=== PATIENT | female | born 1990 | race American Indian/Alaskan Native ===

== ENCOUNTER 2017-06-23 05:34 | Inpatient (IN) | payer MEDICAID ==
[2017-06-23] MEDS ORDERED: PITOCin/NS 20 UNIT/1000ML DRIP 20,000 MILLIUNITS/1,000 ML BAG IV ONE (06:13)
[2017-06-23] MEDS ORDERED: BRETHINE IVP PRN (06:33)
[2017-06-23] MEDS ORDERED: LANSINOH TP PRN (06:33)
[2017-06-23] MEDS ORDERED: BENADRYL PO PRN (06:33)
[2017-06-23] MEDS ORDERED: DULCOLAX PR PRN (06:33)
[2017-06-23] MEDS ORDERED: TORADOL IV PRN (06:33)
[2017-06-23] MEDS ORDERED: PERCOCET 5/325 PO PRN (06:33)
[2017-06-23] MEDS ORDERED: PHENERGAN PR PRN (06:33)
[2017-06-23] MEDS ORDERED: TUCKS PAD TP PRN (06:33)
[2017-06-23] MEDS ORDERED: BRETHINE SUB-Q PRN (06:33)
[2017-06-23] MEDS ORDERED: ZOFRAN IV PRN (06:33)
[2017-06-23] MEDS ORDERED: PHENERGAN PO PRN (06:33)
[2017-06-23] MEDS ORDERED: TYLENOL PO PRN (06:33)
[2017-06-23] MEDS ORDERED: MINERAL OIL PO PRN (06:33)
[2017-06-23] MEDS ORDERED: MILK OF MAGNESIA PO PRN (06:33)
[2017-06-23] MEDS ORDERED: XYLOCAINE 2% INFILTRATI ONE (06:33)
[2017-06-23] MEDS ORDERED: ePHEDrine SULFATE IV PRN (06:33)
--- NOTE | 2017-06-23 06:42 | History and Physical Report ---
History of Present Illness Date of examination: 06/23/17 Date of admission: 06/23/17 05:56 Chief complaint: contractions History of present illness: This is a 27 yo at 39 weeks came here in labor presented as 9cm. She has no care. Past History Past Medical History: no pertinent history Past Surgical History: no surgical history Social history: single. denies: smoking, alcohol abuse, prescription drug abuse - Obstetrical History Expected Date of Delivery: 06/27/17 Actual Gestation: 39 Week(s) 3 Day(s) : 4 Para: 3 Hx # Term Pregnancies: 1 Number of Pregnancies: 2 Spontaneous Abortions: 0 Induced : 0 Review of Systems All systems: negative Genitourinary: contractions - Vital Signs Vital signs: Vital Signs Pulse Pulse Ox 78 100 06/23/17 05:54 06/23/17 05:54 Temp Pulse Resp BP Pulse Ox 156 H 83 L 06/23/17 05:56 06/23/17 05:56 - Physical Exam Breasts: Positive: normal Cardiovascular: Regular rate, Normal S1 Lungs: Positive: Clear to auscultation, Normal air movement Abdomen: Positive: normal appearance, soft, normal bowel sounds. Negative: distention, tenderness, guarding Genitourinary (Female): Positive: normal external genitalia, normal perenium Uterus: Positive: normal size Anus/Rectum: Positive: normal perianal skin Extremities: Positive: normal Deep Tendon Reflex Grade: Normal +2 - Obstetrical FHR: category 1 Uterine Contraction Monitor Mode: Palpation Cervical Dilatation: 9 Cervical Effacement Percentage: 100 station: -1 Uterine Contraction Pattern: Regular Uterine Tone Measurement Phase: Contraction Uterine Contraction Intensity: Strong/Firm Results All other labs normal. Assessment and Plan A/P IUP 39 weeks No care GBS unknown expect vaginal delivery
--- NOTE | 2017-06-23 06:48 | Procedure Note ---
OB Delivery Note - Delivery Date of Delivery: 06/23/17 Surgeon: GM LOMAS Estimated blood loss: 200cc - Vaginal Delivery presentation: vertex Delivery position: OA Intrapartum events: no care, meconium Delivery induction: none Delivery augmentation: rupture of membranes Delivery monitor: external FHT, external uterine Route of delivery: Delivery placenta: spontaneous Delivery cord: 3 umbilical vessels Episiotomy: none Delivery laceration: none Delivery comments: Patient was noted to be c/c/0 and arom with meconium light. Peds called for brittnee. She commenced to pushing a viable female infant in OA presentation at 0625 with shoulders easily delivered and placed on mom chest. Nasopharynx and oropharynx suctions while peds assessing baby. the cord was clamped and cut. The placenta delivered intact with 3 vessel cord. Weight of female 6 pounds and 14 oz. EBL 200cc. no lacs. patient tolerated procedure well. - A at 1 minute: 8 at 5 minutes: 9 Gender: Female
[2017-06-23] MEDS ORDERED: PITOCin/NS 30 UNIT/500ML 30 UNITS/500 ML BAG IV SCH (07:00)
[2017-06-23] MEDS ORDERED: NORMOSOL-R PH 7.4 1,000 ML IV SCH (07:00)
[2017-06-23] MEDS ORDERED: PITOCin/NS 20 UNIT/1000ML DRIP 20 UNITS/1,000 ML BAG IV SCH ×2 (07:00)
[2017-06-23] MEDS ORDERED: SODIUM CHLORIDE FLUSH SYRINGE 10 ML IV NR (07:00)
[2017-06-23 07:29] LABS: Hematocrit 38.9 % (30.3-42.9); Hemoglobin 13.1 gm/dl (10.1-14.3); Mean Corpuscular HGB Conc 34 % (30-34); Mean Corpuscular Hemoglobin 31 pg (28-32); Mean Corpuscular Volume 92 fl (79-97); Platelet Count 230 K/mm3 (140-440); Red Blood Count 4.24 M/mm3 (3.65-5.03); Red Cell Distribution Width 13.7 % (13.2-15.2)
[2017-06-23] MEDS: NORCO 5/325 PO PRN ×2 (07:33→23:16)
[2017-06-23] MEDS: MOTRIN PO SCH ×3 (07:34→18:52)
[2017-06-23 07:58] LABS: Rubella IgG Antibody Immune (Immune)
[2017-06-23] MEDS ORDERED: PRENATAL VITAMIN PO SCH (10:00)
[2017-06-23 12:05] LABS: Hepatitis C Virus Antibody Non-Reactive (NonReactive)
[2017-06-23 20:10] LABS: Hematocrit 33.7 % (30.3-42.9); Hemoglobin 11.6 gm/dl (10.1-14.3)
[2017-06-23 23:23] LABS: Bilirubin,Urine NEG (Negative); Blood,Urine MOD (Negative); Color,Urine Yellow (Yellow); Protein,Urine <15 mg/dL mg/dL (Negative); Urobilinogen,Urine < 2.0 mg/dL (<2.0)
[2017-06-23 23:31] LABS: Amphetamine Screen,Urine PRESUMPTIVE NEGATIVE; Benzodiazepines Screen,Urine PRESUMPTIVE NEGATIVE; Cocaine Screen,Urine PRESUMPTIVE NEGATIVE; Methadone Screen,Urine PRESUMPTIVE NEGATIVE; Opiate Screen,Urine PRESUMPTIVE NEGATIVE
[2017-06-24 00:09] LABS: Cannabinoid Screen,Urine PRESUMPTIVE POSITIVE
[2017-06-24] MEDS: COLACE PO SCH ×3 (00:46→21:56)
[2017-06-24] MEDS ORDERED: BOOSTRIX IM ONE (06:00)
[2017-06-24] MEDS ORDERED: M-M-R II VACCINE SUB-Q ONE (06:00)
[2017-06-24] MEDS: MOTRIN PO SCH ×3 (06:24→14:56)
--- NOTE | 2017-06-24 08:06 | Progress Note ---
Assessment and Plan O: VSS AF PP H/H: 11.6/33.7 A: Stable PP Day1 No care P: Discharge home with baby Subjective - Subjective Date of service: 06/24/17 Patient reports: appetite normal, voiding normally, pain well controlled, flatus , ambulating normally : doing well, bottle feeding Objective - Vital Signs Latest vital signs: Vital Signs Temp Pulse Resp BP BP Pulse Ox 06/24/17 06:24 18 06/24/17 00:16 18 06/24/17 00:00 98.2 F 67 18 115/73 06/23/17 23:16 16 06/23/17 17:13 99.1 F 72 18 102/64 100 06/23/17 13:09 98.4 F 80 18 109/58 99 06/23/17 09:08 98.4 F 77 18 108/56 100 Intake and Output 06/23/17 06/24/17 06/24/17 22:59 06:59 14:59 Intake Total 480 240 Output Total 1500 Balance -1020 240 Intake: Oral 480 240 Output: Urine 1500 Void 1500 Other: Total, Intake Amount 480 240 Total, Output Amount 600 # Voids Void 2 1 - Exam Breasts: Present: deferred Lungs: Present: Normal air movement Abdomen: Present: normal appearance, soft. Absent: distention, tenderness Uterus: Present: normal, firm, fundal height below umbilicus. Absent: bogginess , tenderness Extremities: Present: normal
--- NOTE | 2017-06-24 08:07 | Discharge Summary ---
Providers - Providers Date of Admission: 06/23/17 05:56 Date of discharge: 06/25/17 Attending physician: GM LOMAS MD Primary care physician: GM LOMAS MD Hospitalization Reason for admission: IUP at term Delivery: , other (no care) Episiotomy: none Laceration: none Other procedures: none complications: none Discharge diagnosis: IUP at term delivered baby: female Condition at discharge: Good Disposition: DC-01 TO HOME OR SELFCARE Plan - Discharge Medications Prescriptions: Ibuprofen [Motrin 600 MG tab] 600 mg PO Q6H PRN #30 tablet PRN Reason: Pain - Provider Discharge Summary Activity: routine, no sex for 6 weeks, no heavy lifting 4 weeks, no strenuous exercise, other Diet: routine Instructions: routine Additional instructions: [] Smoking cessation referral if applicable(refer to patient education folder for contact #) [] Refer to [facility] Booklet Call your doctor immediately for: * Fever > 100.5 * Heavy vaginal bleeding ( >1 pad per hour) * Severe persistent headache * Shortness of breath * Reddened, hot, painful area to leg or breast * Drainage or odor from incision. * Keep incision clean and dry at all times and follow doctor's instructions regarding bathing/showering - Follow up plan Follow up: GM LOMAS MD [Primary Care Provider] - (RTO to office 4 weeks [facility], [employer] [address] [place] [address])
[2017-06-24] MEDS: NORCO 5/325 PO PRN (14:57)
[2017-06-25] MEDS: MOTRIN PO SCH ×2 (00:09→06:07)
[2017-06-25 10:48] VITALS: BP 112/71
== END 2017-06-25 19:00 | disposition home or self-care (01) | DRG 775 ==
LOC: TRG 05:34 → LD 05:56 → OB 08:23
PROVIDERS: ADMIT Obstetrics & Gynecology; ATTEND Obstetrics & Gynecology
PROC: 10E0XZZ Delivery of Products of Conception, External Approach (ICD-10-PCS; principal; 2017-06-23)
PROC: 10907ZC Drainage of Amniotic Fluid, Therapeutic from Products of Conception, Via Natural or Artificial Opening (ICD-10-PCS; 2017-06-23)
DX: O77.0 Labor and delivery complicated by meconium in amniotic fluid (principal); Z3A.39 39 weeks gestation of pregnancy; Z37.0 Single live birth
CPT/HCPCS: 36415; 80307; 81001; 85014; 85018; 85027; 85660; 86592; 86706; 86762; 86803; 86850; 86900; 86901; 87806; 88307; 99211; G0463; J2590

== ENCOUNTER 2020-10-19 19:00 | Emergency (ER) | payer MEDICAID, OTHER ==
[2020-10-19] MEDS ORDERED: ACETAMINOPHEN 500 MG TAB PO ONE ×2 (19:51→23:20)
[2020-10-19 20:51] LABS: Basophils # (Auto) 0.1 K/mm3 (0.0-0.1); Basophils % (Auto) 0.7 % (0.0-1.8); Eosinophils # (Auto) 0.1 K/mm3 (0.0-0.4); Eosinophils % (Auto) 1.6 % (0.0-4.3); Hematocrit 35.2 % (30.3-42.9); Hemoglobin 11.6 gm/dl (10.1-14.3); Lymphocytes # (Auto) 2.1 K/mm3 (1.2-5.4); Lymphocytes % (Auto) 26.9 % (13.4-35.0); Mean Corpuscular HGB Conc 33 % (30-34); Mean Corpuscular Volume 89 fl (79-97); Monocytes # (Auto) 0.5 K/mm3 (0.0-0.8); Monocytes % (Auto) 6.5 % (0.0-7.3); Platelet Count 312 K/mm3 (140-440); Red Blood Count 3.95 M/mm3 (3.65-5.03); Red Cell Distribution Width 16.3 % (13.2-15.2)
[2020-10-19 21:05] LABS: HCG Qualitative,Urine Positive (Negative)
[2020-10-19 21:08] LABS: Bacteria,Urine 1+ /HPF (Negative); Bilirubin,Urine NEG (Negative); Blood,Urine NEG (Negative); Color,Urine Yellow (Yellow); Protein,Urine <15 mg/dL mg/dL (Negative); Urobilinogen,Urine < 2.0 mg/dL (<2.0)
[2020-10-19 21:09] LABS: Alanine Aminotransferase 7 units/L (7-56); Albumin 3.4 g/dL (3.9-5); Blood Urea Nitrogen 5 mg/dL (7-17); Calcium 8.7 mg/dL (8.4-10.2); Hemolysis Index 3
[2020-10-19 21:20] LABS: BUN/Creatinine Ratio 13
--- NOTE | 2020-10-19 22:06 | Emergency Department Report ---
ED Female HPI - General Chief complaint: Urogenital-Female Stated complaint: VAGINAL DISCHARGE 17WKS Source: patient Mode of arrival: Wheelchair Limitations: No Limitations - History of Present Illness Initial comments: Patient is a A1 30-year-old -[place] female who is approximately 17 weeks gestation presents to the ED with complaint of acute onset persistent p elvic pain and vaginal discharge which she describes as white in color for the last 2 days. Patient states that the pain is especially worse with any movement in her pelvic area. Patient denies vaginal bleeding, dysuria, urinary frequency and urgency, nausea, vomiting, diarrhea, constipation, chest pain, shortness of breath, fever, chills, low back pain or hematuria. MD Complaint: vaginal discharge, pelvic pain, other (17 weeks gestation) -: Sudden, days(s) (2) Location: suprapubic Radiation: non-radiating Severity: moderate Severity scale (0 -10): 6 Quality: cramping, sharp Consistency: constant Improves with: none Worsens with: movement Are you Now?: Yes (17 weeks gestation) Associated Symptoms: denies other symptoms, vaginal discharge, abdominal pain (Suprapubic pain). denies: vaginal bleeding, nausea/vomiting, fever/chills, headaches, loss of appetite, dysuria, hematuria, rash, seizure, shortness of breath, syncope, weakness, other - Related Data Sexually active: Yes : 7 Para: 5 A: 1 Previous Rx's Medication Instructions Recorded Last Taken Type Ibuprofen [Motrin 600 MG tab] 600 mg PO Q6H PRN #30 tablet 06/24/17 Unknown Rx Acetaminophen [Tylenol] 500 mg PO Q6HR PRN #30 tablet 10/19/20 Unknown Rx Allergies Allergy/AdvReac Type Severity Reaction Status Date / Time No Known Drug Allergies Allergy Unknown Verified 06/23/17 06:43 ED Review of Systems ROS: Stated complaint: VAGINAL DISCHARGE 17WKS Other details as noted in HPI Constitutional: denies: chills, fever Eyes: denies: eye pain, eye discharge, vision change ENT: denies: ear pain, throat pain Respiratory: denies: cough, shortness of breath, wheezing Cardiovascular: denies: chest pain, palpitations Endocrine: no symptoms reported Gastrointestinal: abdominal pain (Pelvic pain). denies: nausea, vomiting, diarrhea Genitourinary: discharge (Clear white vaginal discharge). denies: urgency, dysuria Musculoskeletal: denies: back pain, joint swelling, arthralgia Skin: denies: rash, lesions Neurological: denies: headache, weakness, paresthesias Psychiatric: denies: anxiety, depression Hematological/Lymphatic: denies: easy bleeding, easy bruising ED Past Medical Hx - Past Medical History Previous Medical History?: No Hx Hypertension: No Hx Congestive Heart Failure: No Hx Diabetes: No Hx Deep Vein Thrombosis: No Hx Renal Disease: No Hx Sickle Cell Disease: No Hx Seizures: No Hx Asthma: No Hx COPD: No - Social History Smoking Status: Never Smoker - Medications Home Medications: Home Medications Medication Instructions Recorded Confirmed Last Taken Type Ibuprofen [Motrin 600 MG tab] 600 mg PO Q6H PRN #30 tablet 06/24/17 Unknown Rx Acetaminophen [Tylenol] 500 mg PO Q6HR PRN #30 tablet 10/19/20 Unknown Rx ED Physical Exam - General Limitations: No Limitations General appearance: alert, in no apparent distress - Head Head exam: Present: atraumatic, normocephalic, normal inspection - Eye Eye exam: Present: normal appearance, PERRL, EOMI Pupils: Present: normal accommodation - ENT ENT exam: Present: normal exam, normal orophraynx, mucous membranes moist, TM's normal bilaterally, normal external ear exam - Neck Neck exam: Present: normal inspection, full ROM - Respiratory Respiratory exam: Present: normal lung sounds bilaterally. Absent: respiratory distress, wheezes, rales, rhonchi, chest wall tenderness, accessory muscle use, decreased breath sounds, prolonged expiratory - Cardiovascular Cardiovascular Exam: Present: regular rate, normal rhythm, normal heart sounds. Absent: systolic murmur, diastolic murmur, rubs, gallop - GI/Abdominal GI/Abdominal exam: Present: soft, tenderness (Palpable mild suprapubic tenderness no guarding or rebound), normal bowel sounds. Absent: guarding, rebound, hyperactive bowel sounds, hypoactive bowel sounds, organomegaly - Bi-manual exam: Present: other (Pelvic exam deferred at this time, patient is an inmate) - Extremities Exam Extremities exam: Present: normal inspection, full ROM, normal capillary refill - Back Exam Back exam: Present: normal inspection, full ROM. Absent: tenderness, CVA tenderness (R), CVA tenderness (L), muscle spasm, paraspinal tenderness, vertebral tenderness - Neurological Exam Neurological exam: Present: alert, oriented X3, CN II-XII intact, normal gait, reflexes normal - Psychiatric Psychiatric exam: Present: normal affect, normal mood - Skin Skin exam: Present: warm, dry, intact, normal color. Absent: rash ED Course Vital Signs 10/19/20 19:09 Temperature 98.3 F Pulse Rate 91 H Respiratory 16 Rate Blood Pressure 135/77 [Right] O2 Sat by Pulse 100 Oximetry ED Medical Decision Making - Lab Data Result diagrams: 10/19/20 20:00 10/19/20 20:00 - Radiology Data Radiology results: report reviewed, image reviewed [facility] [address] [id number] Ultrasound Report Signed Patient: RAJNI GUPTA MR #: [id number] : 1990 Acct:[id number] Age/Sex: 30 / F ADM Date: 10/19/20 Loc: ED Attending Dr: Ordering Physician: MIKA BUNCH Date of Service: 10/19/20 Procedure(s): US OB >= 14 weeks Fetus Accession Number(s): [id number] cc: MIKA BUNCH ULTRASOUND OBSTETRIC INDICATION: Pelvic pain. Clinical Gestational Age (GA): 17 weeks TECHNIQUE: Transabdominal. COMPARISON: None available. FINDINGS: There is a single intrauterine . Biparietal Diameter = 3.70 cm = 17 weeks, 2 day(s). Head Circumference = 14.20 cm = 17 weeks, 3 day(s). Abdominal Circumference = 11.93 cm = 17 weeks, 4 day(s). Femur Length = 2.57 cm = 17 weeks, 6 day(s). Average Ultrasound Age (AUA) = 17 weeks, 4 day(s). Heart Rate: 156 beats per minute. Estimated Weight in grams (if calculated): 205 Estimated Weight Growth Percentile (if calculated): 51 Position: cephalic. Cervix: closed. Length in cm (if measured): 3.0 Placenta: anterior, grade 0 and free of the os. Amniotic Fluid Volume: normal Amniotic Fluid Index (JADA) in cm (if calculated): Not calculated. Maternal Adnexa: No significant abnormality. IMPRESSION: 1. Single, living intrauterine with estimated sonographic age of 17 weeks, 4 day(s). 2. No significant sonographic abnormality. Signer Name: Braden Escobar MD Signed: 10/19/2020 10:30 PM Workstation Name: [id number] Transcribed By: INEZ Dictated By: Braden Escobar MD Electronically Authenticated By: Braden Escobar MD Signed Date/Time: 10/19/202229 DD/ 27 TD/TT: Print - Medical Decision Making This is a A1 30-year-old -[place] female who is approximately 17 weeks gestation presents to the ED with complaint of acute onset persistent pelvic pain and vaginal discharge which she describes as white in color for the last 2 days. Patient states that the pain is especially worse with any movement in her pelvic area. In the ED, patient is alert and oriented x3 and is not in any distress. Patient was treated for pain in the ED with Tylenol. Lab test results were reviewed and are all nonactionable. Transvaginal ultrasound shows a single live IUP of approximately 17 weeks and 4 days, with a heart rate of 156 bpm, and no acute abnormalities. On reevaluation, patient's pain is well controlled medications. Patient will discharge home and advised to take Tylenol as needed for pain, follow-up with your [employer] physician in 3 to 5 days for reevaluation or return to the ED immediately if symptoms get worse. - Differential Diagnosis UTI; Ovarian; Uterine fibroid; kidney stones; bacterial vaginosis Critical care attestation.: If time is entered above; I have spent that time in minutes in the direct care of this critically ill patient, excluding procedure time. ED Disposition Clinical Impression: Abdominal pain during in second trimester Disposition: DC-01 TO HOME OR SELFCARE Is pt being admited?: No Does the pt Need Aspirin: No Condition: Stable Instructions: Abdominal Pain During , [id number] Additional Instructions: All lab test results were reviewed and are all nonactionable. The pelvic ultrasound showed a single live intrauterine of approximately 17 weeks and 4 days with a heart rate of 156 beats a minute, and no other acute abnormalities. Therefore maintain the complete pelvic rest, take Tylenol as needed for pain and follow-up with your [employer] physician in 3 to 5 days for reevaluation. Return to the ED immediately if symptoms get worse. Prescriptions: Acetaminophen [Tylenol] 500 mg PO Q6HR PRN #30 tablet PRN Reason: Pain , Severe (7-10) Referrals: DIMA GREEN JR, MD [Staff Physician] - 3-5 Days Time of Disposition: 22:44 Print Language: CHINESE
--- NOTE | 2020-10-19 22:35 | Ultrasound Report ---
ULTRASOUND OBSTETRIC INDICATION: Pelvic pain. Clinical Gestational Age (GA): 17 weeks TECHNIQUE: Transabdominal. COMPARISON: None available. FINDINGS: There is a single intrauterine . Biparietal Diameter = 3.70 cm = 17 weeks, 2 day(s). Head Circumference = 14.20 cm = 17 weeks, 3 day(s). Abdominal Circumference = 11.93 cm = 17 weeks, 4 day(s). Femur Length = 2.57 cm = 17 weeks, 6 day(s). Average Ultrasound Age (AUA) = 17 weeks, 4 day(s). Heart Rate: 156 beats per minute. Estimated Weight in grams (if calculated): 205 Estimated Weight Growth Percentile (if calculated): 51 Position: cephalic. Cervix: closed. Length in cm (if measured): 3.0 Placenta: anterior, grade 0 and free of the os. Amniotic Fluid Volume: normal Amniotic Fluid Index (JADA) in cm (if calculated): Not calculated. Maternal Adnexa: No significant abnormality. IMPRESSION: 1. Single, living intrauterine with estimated sonographic age of 17 weeks, 4 day(s). 2. No significant sonographic abnormality. Signer Name: Braden Escobar MD Signed: 10/19/2020 10:30 PM Workstation Name: [id number]
[2020-10-19 23:06] VITALS: BP 147/76
== END 2020-10-19 23:36 | disposition home or self-care (01) ==
LOC: ED 19:00
DX: O26.892 Other specified pregnancy related conditions, second trimester (principal); R10.9 Unspecified abdominal pain; Z79.899 Other long term (current) drug therapy; Z3A.14 14 weeks gestation of pregnancy
CPT/HCPCS: 36415; 76805; 80053; 81001; 81025; 84702; 85025; 99284